=== PATIENT | female | born 1975 | race Caucasian/White ===

== ENCOUNTER 2016-09-26 11:05 | Emergency (ER) | payer SELFPAY ==
--- NOTE | 2016-09-26 12:19 | ED Physician Chart ---
Chief Complaint/HPI - Patient Information Date Seen:: 09/26/16 Time Seen:: 11:45 Chief Complaint:: left thumb laceration History of Present Illness:: At 9:30 AM the patient cut her left thumb on the metal back of a patient's chart. Laceration is continued to bleed. Patient is right-hand dominant. Allergies:: Allergies Allergy/AdvReac Type Severity Reaction Status Date / Time No Known Allergies Allergy Verified 09/26/16 11:44 Vitals:: Vital Signs - 8 hr 09/26/16 11:33 HR 75 RR 16 BP 134/64 O2 Sat % 100 Historian:: Patient Review:: Nurse's Note Reviewed Review of Systems - Review of Systems General/Constitutional: No fever, No chills Skin: Skin lesions Head: No headache Eyes: No loss of vision ENT: No earache Neck: No neck pain Cardio Vascular: No chest pain, No palpitations Pulmonary: No SOB GI: No nausea, No vomiting, No diarrhea G/U: No dysuria, No hematuria Musculoskeletal: No bone or joint pain, No back pain, No muscle pain Psychiatric: No prior psych history, No depression, No anxiety Hematopoietic: No bruising Allergic/Immuno: No urticaria Neurological: No syncope, No focal symptoms Past Medical History - Past Medical History Past Medical History: No significant medical hx Family History: Diabetes Melitus, HTN Social History: Non Smoker, Other (occasional alcohol only) Surgical History: other (tubal ligation) Psychiatricy History: None Medication: None Family Medical History - Family Member Mother Ethnicity: Living Status: Still Living Hx Family Hypertension: Yes Father Living Status: Still Living Hx Family Hypertension: Yes Hx Family Diabetes: Yes Physical Exam - Physical Examination General/Constitutional: Well-developed, well-nourished, Alert Head: Atraumatic Eyes: Lids, conjuctiva normal, PERRL Other Skin comments:: 3 cm long distally based flap laceration over the interphalangeal joint dorsum left thumb; base of the flap is about 1 cm wide; neurovascular status is intact; flap was retracted and lacerations seem to be about 2 mm deep but was noted to be oozing blood. ENMT: External ears, nose nl Neck: No nuchal rigidity Respiratory: Nl effort/Exclusion, Clear to Auscultation Cardio Vascular: RRR, No murmur, gallop, rubs, NL S1 S2 GI: No tenderness/rebounding/guarding : No CVA tenderness Other Extremities comments:: See above under skin Neuro/Psych: Alert/oriented Misc: Normal back Assessment Location:: See above for description of laceration; 1% Xylocaine used for digital block after skin cleansed with Betadine solution; laceration irrigated with normal saline; 9 interrupted 5.0 chromic sutures used to close the laceration. ED Septic Shock - . Is Septic Shock (SBP<90, OR Lactate>4 mmol\L) present?: No - <6hrs of presentation: Vital Signs: Vital Signs - 8 hr 05// 11:33 HR 75 RR 16 BP 134/64 O2 Sat % 100 Reassessment (Disposition) - Reassessment Reassessment Condition:: Improved - Diagnosis Diagnosis:: 3 cm long left thumb laceration - Aftercare/Follow up Instructions Aftercare/Follow-Up Instructions:: Refer to Discharge Instructions - Patient Disposition Discharge/Transfer:: Home Condition at Disposition:: Stable, Improved
== END 2016-09-26 12:45 | disposition home or self-care (01) ==
LOC: ER 11:05
DX: S61.012A Laceration without foreign body of left thumb without damage to nail, initial encounter (principal); W45.8XXA Other foreign body or object entering through skin, initial encounter; Y93.89 Activity, other specified; Y92.89 Other specified places as the place of occurrence of the external cause; Y99.8 Other external cause status
CPT/HCPCS: 12002; A4217; J2001; Z7502; Z7610